=== PATIENT | male | born 1985 | race Caucasian/White ===

== ENCOUNTER 2024-06-26 07:18 | Outpatient (CLI) | payer OTHER, SELFPAY ==
--- NOTE | ~2024-06-26 | US_ITS ---
Left upper quadrant ultrasound CLINICAL HISTORY: Abdominal wall mass TECHNIQUE: Sonographic imaging of the left upper quadrant was performed. FINDINGS: In the left upper quadrant, there is a heterogeneous appearing masslike lesion measuring up to 18.5 x 12.1 x 15.6 cm. There are hyperechoic and hypoechoic components of the lesion. Spleen appears to be separate from the mass, with otherwise homogeneous echotexture. Spleen measures 14.5 cm in length. IMPRESSION: 18.5 x 12.1 x 15.6 cm heterogeneous mass in the left upper quadrant, probably separate from spleen. T his could reflect large hematoma versus possibly neoplastic lesion. Contrast-enhanced CT scan of the abdomen and pelvis recommended to further evaluate. Reviewed, dictated and finalized at location . IMPRESSION: 18.5 x 12.1 x 15.6 cm heterogeneous mass in the left upper quadrant, probably s eparate from spleen. This could reflect large hematoma versus possibly neoplast ic lesion. Contrast-enhanced CT scan of the abdomen and pelvis recommended to sarahi ashley.
== END 2024-06-26 07:19 | disposition home or self-care (01) ==
PROVIDERS: PCP Nurse Practitioner; Visit Provider Nurse Practitioner
DX: R19.02 Left upper quadrant abdominal swelling, mass and lump (principal)
CPT/HCPCS: 76705